=== PATIENT | female | born 1960 | race Caucasian/White ===

== ENCOUNTER 2016-11-23 07:52 | Day surgery (SDC) | payer OTHER ==
--- NOTE | 2016-11-19 09:50 | PDGENHP ---
History and Physical - Chief Complaint Bilateral SUDHEER - History of Present Illness 1. Bilateral~Hip Pain 2. Bilateral~Femoroacetabular impingement (SUDHEER) Cam type, labral tears 3. AIIS SUDHEER HISTORY OF PRESENT ILLNESS: Andreais a 55 y.o.~active female~who I have had the pleasure to consult on today. ~I have enjoyed meeting her. She~lives in [place]. 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 ~She~is ; she~has one~child. ~Corby enjoys hiking, skiing, jogging, tabata aerobics. Irene's bilateral~hip pain (R>L). Her right hip pain started 6 months ago after she had a 2 hour massage and then went to her aerobics class - the pain started 5 minutes into her class. Her left hip started bothering her 2 months ago after she saw Dr. Blackman and her hips were manipulated during the exam. Prior to this she had no hip complaints aside from right sided trochanteric bursitis for about 1 year. Corbydoes not have~a known history of hip dysplasia. One her right side her pain is mostly lateral. On the left side she has burning pain anteriorly and laterally, and dull pain posteriorly.~The hip does~wake her~ at night and does~click and catch on her. Sitting can be a real struggle~for her. Corbydoes~report suffering from lower back pain episodes. Corbyhas~participated in physical therapy and has~tried other conservative measures including dry needling, chiropractic treatments and massage therapy. She~has not~received sufficient symptomatic improvement. Of note, when she had the contrast injection for her bilateral hip MRI she received relief of almost all of her pain for 48 hours. Corbyhas~utilized medication for pain management, including NSAID and OTC acetaminophen. Corbyhas used medication for 6 months. Corbyunderstands that she~has a hip and pelvis problem which should be researched and wishes to get a better understanding of her~hip status, followed by an establishment of a treatment strategy, hoping she~would be able to get back to her~well being active life. History: Past medical history: ~ Osteoporosis, Hypothyroid Relevant familial history: CAD Past surgical history: No. Surgery Anesthesia Year Outcome 1 Tonsilectomy General 1965 Good 2 Spinal 2002 Good Irene~denies problematic issues with general anesthesia in the past. I have reviewed, verified and agree with the past medical, surgical, family and social history. Current Medications:~has a current medication list which includes the following prescription(s): calcium, GENERIC DME, ibandronate, levothyroxine sodium, multivitamin, [id number] oil, thyroid, and vimovo. ALLERGIES:~is allergic to almond; dairy aid [lactase]; nsaids (non-steroidal anti-inflammatory drug); peanut; soybean; and sunflower. Objective: Physical Examination: Corbyis 5~feet 4~inches tall and weighs~93~Lbs. Corbyis AAO x3; she~is well-nourished, in NAD. Skin is warm and dry. ~Breathing is non-labored. ~CV with RRR by pulse. Abdomen is soft, NTND. Currently, she~walks with a normal~gait. Trendelenburg sign is negative~and proprioception~is normal, both~sides. She~presents~with mild~signs of joint laxity.~Beightons Score: 1 Lower spine examination is negative~for sciatic or femoral nerve irritation with negative~SLR &~femoral stretch tests. Range of motion of the spine is~ limited due to stiffness with~flexion, extension, and rotations, with~ associated pain. Strength, Sensation and pulses are normal - bilaterally~with the exception of 4+ /5 hip flexion Ankles and knees exams are normal~and no~mal-alignment is evident. She~has~right~0.5~cm short leg length discrepancy. Thigh circumference is symmetric~with low~muscle atrophy~on both~sides. Hip ROM (degrees): FL ER At 90~hip FL IR At 90~hip FL AB AD EX IR Neutral hip ER Neutral hip R 105 50 0 35 5 0 25 45 L 95 50 0 30 5 0 25 45 Specific hip and pelvis tests: Quadrant JOSEPH Roll Add. Longus R +++ +++ (posterior pain) Negative ++ L +++ +++ (posterior pain) Negative ++ Glut. Med ITB Pos. Imp R Negative 4+/5 strength Negative 4+/5 strength Negative L Negative 4+/5 strength Negative 4+/5 strength Negative Squeeze test measured normal Bony Symphysis pubis is pain free~to touch while concentric activity of the rectus abdominis, does not~produce pain at its insertion. Ilio Psos specific tests are negative for pain during cycling for both hips~and remarkable for no snap HF has good strength and no pain both hips. Anterior and lateral~capsule tenderness bilaterally Greater trochanteric burse is painful~on both hips. Piriformis tests: FAIR is negative, with no~local signs of neuritis related to sciatic nerve. SIJs examination is produces pain on left side~with normal~JOSEPH in relation and local tenderness. Hamstrings tests are negative~functional contraction and negative~tendinopathy both hips. On a daily basis, the following percentages reflect Irene's overall total pain: Deep hip: 10% Back: 40% SI: 30% GT: 10% Adductor: 10% Imaging: Radiology studies which I~have personally reviewed, analyzed and measured are below: XR: AP of the hip and pelvis: Performed in a good~technique Coccyx to pubic symphysis distance 1.8~cm. 0 degrees caudal/cephal [place]~Lines are preserved. Minimal~Pathological signs are seen in the Symphysis Pubis. Minimal~Pathological signs are seen at the Ischial~tuberosity. ~ Specific measurements show: NSA~ LCE Sourcil~Angle Sharp's angle Lat. Cam Lat. Pincer C.Over~sign Head~Coverage % ATDmm R N 36 2 39 - - 12-12:30 N N L N 28 6 41 - - 12-12:30 N N Pos. wall sign ISS NAD ~~Dysplasia Comments R Negative Negative 10~mm Negative L Negative Negative 10~mm Negative Sclerosis Sup. Lat. OA Cysts Joint Space-WBZ Joint Space-Medial R Negative Negative Negative 4.2mm 4.1~mm L Negative Negative Negative 4.4~mm 4.2~mm X Table lateral: Anterior cam lesion is seen~on both hips. Alpha Angle: ~ Right 70~dergrees Left 74~degrees MRI shows: Anterior labral tear and good cartilage in both hips Impression and plan:~ Irene~is a 55 y.o.~active female~suffering from symptomatic bilateral~hip pain due to Bilateral~Femoroacetabular impingement (SUDHEER) Cam type~causing significant disability to her~and altering~her~sport and life activities. Physical examination, imaging, and her~story correspond with the diagnosis mentioned above. I explained that femoroacetabular impingement (SUDHEER) arises due to a bony or soft tissue conflict between the femur (ball) and acetabulum (socket) caused by an abnormality in the shape of the hip joint. Over time, repetitive impingement can result in damage to the labrum and adjacent surface cartilage within the socket, ultimately giving rise to progressive osteoarthritis of the hip. I explained that although a labral tear can be a source of pain, it is rarely the root of the problem and typically occurs secondary to an underlying abnormality in the shape and mechanics of the hip joint. ~ I reviewed conservative treatment options for SUDHEER including activity modification to avoid positions of impingement, physical therapy, non-steroidal anti-inflammatory medications, and various injections (corticosteroid and PRP) aimed at reducing inflammation in the hip joint or/and preventing dynamic impingement. PRP injections may promote healing and reduce symptoms in certain cases but it will not repair chronically damaged tissue. Although these measures may help to buy time~and reduce current level of symptoms, they are not a definitive solution to the problem given the underlying abnormality in the shape of the hip joint. Patients who have failed conservative management and continue to experience symptoms are candidates for hip arthroscopy, a minimally invasive surgery that can definitively address the underlying problem. Hip arthroscopy typically includes treating the labrum with either repair or reconstruction of the torn labrum; as well as addressing the underlying abnormalities by restoring the normal shape to the hip joint. ~If the cartilage is damaged a Microfracture surgical procedure may also be necessary to help stimulate the growth of fibrocartilage. ~If a patient requires a labral reconstruction or a Microfracture, the initial rehabilitation from the surgery may take longer, but the correction results are typically favorable. I have explained that because of her age and gender, the results of hip arthroscopy are less reproducible/predictable than with younger patients or male patients of the same age. I reviewed the technical aspects of hip arthroscopy including risks, benefits, and expected course of recovery. Irene~understands that hip arthroscopy is a minimally invasive outpatient procedure carried out through small incisions on the outer aspect of the hip joint. During surgery, the labral tear will be identified and either repaired or reconstructed~using bone anchors and suture material. Additionally, any excessive bone will be removed with a high-speed michelle to reshape the hip joint and restore normal anatomy. Risks include infection, bleeding, injury to nearby nerves or vessels, stiffness, persistent pain, instability, venous thromboembolic disease, and traction related complications including temporary foot numbness. Rarely, revision surgery may be required to address these problems. Overall recovery takes approximately 4~~ 8~months depending on the extent of damage and degree of repair. In the event that the labral tissue quality is inadequate for successful repair and healing, Irene~understands that a labral reconstruction will be performed. This procedure entails placing a cadaver tissue graft within the hip joint and stabilizing it with bone anchors to build a new labrum. The overall recovery time for labral reconstruction is similar to that of labral repair, although the surgical procedure takes longer to perform. We encouraged Corbyto review our website to learn more about PRP injections and hip arthroscopy. Corbywill review the info presented. In order to obtain more detailed information regarding the alignment, orientation, and shape of the bony hip and pelvis I will order a CT scan to be performed. The results of the CT scan, including femoral torsion and acetabular version measured values and 3D images, will aid me in deciding on the best treatment strategy and surgical pre-planning. Corbywill talk with our schedulers about PRP injections and possible surgery dates. Corbyis happy with this plan. I have also supplied her~with handouts, outlining the expected surgical treatment and rehab involved. I wish~Corbyall the best, ~~ Thor Hanley MD History Information - Allergies/Home Medication List Allergies/Adverse Reactions: NSAIDS (Non-Steroidal Anti-Inflamma Allergy (Verified 11/02/16 14:31) Other-Enter Comments Home Medications: Tirosint 11/02/16 [Last Taken Unknown] I have personally reviewed and updated: medical history - Social History Smoking Status: Never smoked Review of Systems Review of Systems: Physical Exam Physical Exam:
[2016-11-23] MEDS ORDERED: PREGABALIN 150 MG CAP PO ONE (08:14)
[2016-11-23] MEDS ORDERED: ceFAZolin 2 GM/DEXTROSE 100 ML IV ONE (08:14)
[2016-11-23] MEDS ORDERED: ACETAMINOPHEN 500 MG TAB PO ONE (08:14)
[2016-11-23] MEDS ORDERED: LR 1,000 ML IV ONE (08:18)
[2016-11-23] MEDS ORDERED: LIDOCAINE 1% 2 ML INJ ID PRN (08:18)
[2016-11-23] MEDS ORDERED: BUPIVACAINE 0.25% 30 ML SDV ONE (08:35)
--- NOTE | 2016-11-23 08:41 | PDANEPAE ---
ANE History of Present Illness here for bilateral hip scope ANE Past Medical History - Cardiovascular History Hx Hypertension: No Hx Arrhythmias: No Hx Chest Pain: No Hx Coronary Artery / Peripheral Vascular Disease: No Hx CHF / Valvular Disease: No Hx Palpitations: No Cardiovascular History Comment: occ racing heart beat at night - Pulmonary History Hx COPD: No Hx Asthma/Reactive Airway Disease: No Hx Recent Upper Respiratory Infection: No Hx Oxygen in Use at Home: No Hx Sleep Apnea: No Sleep Apnea Screening Result - Last Documented: Negative - Neurologic History Hx Cerebrovascular Accident: No Hx Seizures: No Hx Dementia: No - Endocrine History Hx Diabetes: No Endocrine History Comment: hypothyroidism - Renal History Hx Renal Disorders: No - Liver History Hx Hepatic Disorders: No - Neurological & Psychiatric Hx Hx Neurological and Psychiatric Disorders: No - Cancer History Hx Cancer: No - Congenital Disorder History Hx Congenital Disorders: No - GI History Hx Gastrointestinal Disorders: Yes Gastrointestinal History Comment: reflux when on nsaids - Other Health History Other Health History: wears glasses - Chronic Pain History Chronic Pain: Yes (bilateral hip pain, sI area) - Surgical History Prior Surgeries: nasal surgery. ANE Review of Systems Review of systems is: negative Review of Systems: - Exercise capacity Exercise capacity: >=4 METS METS (RN): 5 METS ANE Patient History - Allergies Allergies/Adverse Reactions: NSAIDS (Non-Steroidal Anti-Inflamma Allergy (Verified 11/02/16 14:31) Other-Enter Comments - Home Medications Home medications: home medication list seen and reviewed Home Medications: Tirosint 11/02/16 [Last Taken Unknown] - NPO status NPO Status: no food or drink >8 hours - Anes Hx Anes Hx: no prior problems - Smoking Hx Smoking Status: Never smoked - Family Anes Hx Family Hx Anesthesia Complications: none ANE Labs/Vital Signs - Vital Signs Blood Pressure: 135/83 Heart Rate: 69 Respiratory Rate: 18 O2 Sat (%): 98 Height: 162.56 cm Weight: 43.998 kg ANE Physical Exam - Airway Neck exam: FROM Mallampati Score: Class 1 - Pulmonary Pulmonary: no respiratory distress - Cardiovascular Cardiovascular: regular rate and rhythym - ASA Status ASA Status: II ANE Anesthesia Plan Anesthesia Plan: general endotracheal anesthesia
[2016-11-23] MEDS ORDERED: MIDAZOLAM 2 MG/2 ML VIAL IVP ONE (08:43)
[2016-11-23] MEDS ORDERED: PROPOFOL/EMULSION 500 MG/50 ML BOTTLE IV ONE (10:09)
[2016-11-23] MEDS ORDERED: fentaNYL 100 MCG/2 ML INJ ONE ×4 (10:09→17:29)
[2016-11-23] MEDS ORDERED: PROPOFOL 200 MG/20 ML VIAL ONE ×3 (10:39→15:48)
[2016-11-23] MEDS ORDERED: fentaNYL 100 MCG/2 ML INJ IVP PRN (11:36)
[2016-11-23] MEDS ORDERED: PROMETHAZINE HCL 25 MG/ML INJ IVP PRN (11:36)
[2016-11-23] MEDS ORDERED: DEXAMETHASONE 4 MG/ML VIAL IVP PRN (11:36)
[2016-11-23] MEDS ORDERED: ACETAMINOPHEN 500 MG TAB PO PRN (11:36)
[2016-11-23] MEDS ORDERED: ONDANSETRON 4 MG/2 ML VIAL IVP PRN (11:36)
[2016-11-23] MEDS ORDERED: ALBUTEROL 3 ML DEYVIAL IH PRN (11:36)
[2016-11-23] MEDS ORDERED: NALOXONE HCL 0.4 MG/ML INJ IVP PRN (11:36)
[2016-11-23] MEDS ORDERED: HYDROCODONE/APAP 5/325 TAB PO PRN (11:36)
[2016-11-23] MEDS ORDERED: HYDROmorphONE/DILAUDID 1 MG/ML INJ IVP PRN (11:36)
--- NOTE | 2016-11-23 17:09 | POSTANESTH ---
Post Anesthetic Evaluation Cardiovascular Status: Normal, Stable, Tx Over/Under Hydration Respiratory Status: Requires Airway Assist Level of Consciousness/Mental Status: Moderately Sleepy Pain Control: Adequate, Prn Tx Ordered Nausea/Vomiting Control: Adequate, Prn Tx Ordered Complications Possibly Related to Anesthesia: None Noted
[2016-11-23] MEDS ORDERED: HYDROmorphONE/DILAUDID 1 MG/ML INJ ONE (17:37)
[2016-11-23] MEDS ORDERED: HYDROCODONE/APAP 5/325 TAB ONE (18:46)
[2016-11-23] MEDS ORDERED: ONDANSETRON 4 MG/2 ML VIAL ONE (19:06)
[2016-11-23 20:37] VITALS: BP 130/78; PULSE 63; RESP 18; TEMP 96.4; O2SAT 96
== END 2016-11-23 20:35 | disposition home or self-care (01) ==
LOC: FSGY 07:52
PROVIDERS: ATTEND Orthopaedic Surgery Sports Medicine
PROC: 0SQ94ZZ Repair Right Hip Joint, Percutaneous Endoscopic Approach (ICD-10-PCS; principal; 2016-11-23 07:15)
PROC: 0SQB4ZZ Repair Left Hip Joint, Percutaneous Endoscopic Approach (ICD-10-PCS; principal; 2016-11-23 07:15)
DX: M25.851 Other specified joint disorders, right hip (principal); M25.852 Other specified joint disorders, left hip
CPT/HCPCS: 29914; 29916; 76001; C1769; C1713; J0171; J0690; J1170; J2250; J2405; J2704; J3010

== ENCOUNTER → 2017-07-16 | Outpatient (CLI) | payer OTHER | LOC: FIMAGING 09:25 | PROVIDERS: ATTEND Family Medicine | DX: E03.9 Hypothyroidism, unspecified (principal); E04.1 Nontoxic single thyroid nodule ==

== ENCOUNTER → 2017-07-23 | Outpatient (CLI) | payer OTHER | LOC: FIMAGING 10:26 | PROVIDERS: ATTEND Family Medicine | DX: Z13.820 Encounter for screening for osteoporosis (principal); M81.0 Age-related osteoporosis without current pathological fracture ==